=== PATIENT | female | born 1980 | race Caucasian/White ===

== ENCOUNTER 2017-07-07 15:46 | Emergency (ER) | payer OTHER ==
[2017-07-07 16:02] VITALS: BP 139/82; PULSE 90; TEMP 98.3; BMI 34.4
--- NOTE | 2017-07-07 16:04 | PDOC ---
Rapid Medical Evaluation Time Seen by Provider: 07/07/17 15:56 Medical Evaluation: Allergies Allergy/AdvReac Type Severity Reaction Status Date / Time No Known Allergies Allergy Verified 10/29/15 03:05 07/07/17 15:57 The patient presents with a chief complaint of: [Having heart palpitation, dizziness and tingling in the hands, started 1 hour ago. No history of anxiety ] I have performed a brief in-person evaluation of this patient. Pertinent physical exam findings: vss, [No tachycardia, RRR, Lungs clear on assessment. abdomen is soft, nontender, non distended] I have ordered the following: [EKG] The patient will proceed to the ED for further evaluation. Discharge Disposition - Diagnosis Heart palpitations - Referrals - Patient Instructions - Post Discharge Activity
[2017-07-07 17:33] LABS: BASO % 0.7 % (0-2.0); EOS % 0.3 % (0-4.5); HEMATOCRIT 42.7 % (32.4-45.2); HEMOGLOBIN 14.2 GM/dL (10.7-15.3); LYMPH % 14.7 % (8-40); MCH 27.8 pg (25.7-33.7); MCHC 33.4 g/dl (32.0-36.0); MEAN CELL VOLUME 83.2 fl (80-96); MEAN PLT VOLUME 8.5 fl (7.5-11.1); MONO % 5.9 % (3.8-10.2); NEUT % 78.4 % (42.8-82.8); PLATELET COUNT 289 K/MM3 (134-434); RBC 5.13 M/mm3 (3.60-5.2); RDW 13.6 % (11.6-15.6); WHITE BLOOD COUNT 8.1 K/mm3 (4.0-10.0)
--- NOTE | 2017-07-07 17:41 | PDOC ---
History of Present Illness - General History Source: Patient Exam Limitations: No Limitations - History of Present Illness Initial Comments: 07/07/17 17:42 The patient is a 36 year old female, with a significant past medical history of GERD, who presents to the emergency department with, palpitations, dizziness, and cold hands shaking beginning approx. 2 hours ago. The patient reports the palpitations lasted for approx. 5 minutes before resolving on their own. The patient reports she did not eat for a few hours before the palpitations. The patient also reports associated symptoms of headache. She denies chest pain, shortness of breath or loss of consciousness. She denies recent surgery or recent travel. She denies recent fevers, chills, or dizziness. She denies recent nausea, vomit, diarrhea or constipation. She denies recent dysuria, frequency, urgency or hematuria. Allergies: NKA Past surgical history: None reported. Social history: Nonsmoker. Denies EtOH use and recreational drug use. Primary Care Physician: Dr. Shira Lepe <Delbert Yoo - Last Filed: 07/07/17 17:42> <Yumiko Wright - Last Filed: 07/09/17 09:56> - General Chief Complaint: Palpitations Stated Complaint: PALPITATIONS, SOB Time Seen by Provider: 07/07/17 15:56 Past History <Delbert Yoo - Last Filed: 07/07/17 17:42> - Past Medical History Asthma: No Cancer: No Cardiac Disorders: No COPD: No Diabetes: No HTN: No Seizures: No Thyroid Disease: No - Suicide/Smoking/Psychosocial Hx Smoking Status: No Smoking History: Never smoked Number of Cigarettes Smoked Daily: 0 Information on smoking cessation initiated: No Hx Alcohol Use: No Drug/Substance Use Hx: No Substance Use Type: None Hx Substance Use Treatment: No <Yumiko Wright - Last Filed: 07/09/17 09:56> - Past Medical History Allergies/Adverse Reactions: Allergies Allergy/AdvReac Type Severity Reaction Status Date / Time No Known Allergies Allergy Verified 07/07/17 15:58 Home Medications: Ambulatory Orders Omeprazole 20 mg PO DAILY 07/07/17 Review of Systems - Review of Systems Comments:: 07/07/17 17:43 GENERAL/CONSTITUTIONAL: No fever or chills. No weakness. HEAD, EYES, EARS, NOSE AND THROAT: No change in vision. No ear pain or discharge. No sore throat. CARDIOVASCULAR: +Palpitations. No chest pain or shortness of breath. RESPIRATORY: No cough, wheezing, or hemoptysis. GASTROINTESTINAL: No nausea, vomiting, diarrhea or constipation. GENITOURINARY: No dysuria, frequency, or change in urination. MUSCULOSKELETAL: No joint or muscle swelling or pain. No neck or back pain. SKIN: No rash NEUROLOGIC: +Headache. +Dizziness. No loss of consciousness, or change in strength/sensation. ENDOCRINE: No increased thirst. No abnormal weight change. HEMATOLOGIC/LYMPHATIC: No anemia, easy bleeding, or history of blood clots. ALLERGIC/IMMUNOLOGIC: No hives or skin allergy. <Delbert Yoo - Last Filed: 07/07/17 17:42> *Physical Exam - Vital Signs Last Vital Signs Temp Pulse Resp BP Pulse Ox 98.3 F 90 18 139/82 100 07/07/17 15:59 07/07/17 15:59 07/07/17 15:59 07/07/17 15:59 07/07/17 15:59 - Physical Exam Comments: 07/07/17 17:43 GENERAL: Awake, alert, and fully oriented, in no acute distress HEAD: No signs of trauma EYES: PERRLA, EOMI, sclera anicteric, conjunctiva clear ENT: Auricles normal inspection, hearing grossly normal, nares patent, oropharynx clear without exudates. Moist mucosa NECK: Normal ROM, supple, no lymphadenopathy, JVD, or masses LUNGS: Breath sounds equal, clear to auscultation bilaterally. No wheezes, and no crackles HEART: Regular rate and rhythm, normal S1 and S2, no murmurs, rubs or gallops ABDOMEN: Soft, nontender, normoactive bowel sounds. No guarding, no rebound. No masses EXTREMITIES: Normal range of motion, no edema. No clubbing or cyanosis. No cords, erythema, or tenderness NEUROLOGICAL: Cranial nerves II through XII grossly intact. Normal speech, normal gait SKIN: Warm, Dry, normal turgor, no rashes or lesions noted. <Delbert Yoo - Last Filed: 07/07/17 17:42> - Vital Signs Last Vital Signs Temp Pulse Resp BP Pulse Ox 98.3 F 90 18 139/82 100 07/07/17 15:59 07/07/17 15:59 07/07/17 15:59 07/07/17 15:59 07/07/17 15:59 <Yumiko Wright - Last Filed: 07/09/17 09:56> Heart Score/ECG Review - History History: Slightly suspicious - Electrocardiogram EKG: Normal - Age Age: </= 45 - Risk Factors Risk Factors Heart Score: No Hx Hypercholesterolemia, No Hx Hypertension, No Hx Diabetes, No Smoking History, No Hx Obesity Based on the list above the patient has:: No risk factors known - Troponin Troponin: </= normal limit - Score Heart Score - Total: 0 - ECG Intrepretation Rhythm: Regular Rhythm - [place]: Normal <Yumiko Wright - Last Filed: 07/09/17 09:56> ED Treatment Course - LABORATORY CBC & Chemistry Diagram: 07/07/17 17:16 07/07/17 17:16 - ADDITIONAL ORDERS Additional order review: Laboratory Results 07/07/17 Unknown Urine HCG, Qual Negative 07/07/17 17:16 RBC 5.13 MCV 83.2 MCHC 33.4 RDW 13.6 MPV 8.5 Neutrophils % 78.4 D Lymphocytes % 14.7 D Monocytes % 5.9 Eosinophils % 0.3 D Basophils % 0.7 <Delbert Yoo - Last Filed: 07/07/17 17:42> - LABORATORY CBC & Chemistry Diagram: 07/07/17 17:16 07/07/17 17:16 - ADDITIONAL ORDERS Additional order review: Laboratory Results 07/07/17 Unknown Urine HCG, Qual Negative 07/07/17 17:16 RBC 5.13 MCV 83.2 MCHC 33.4 RDW 13.6 MPV 8.5 Neutrophils % 78.4 D Lymphocytes % 14.7 D Monocytes % 5.9 Eosinophils % 0.3 D Basophils % 0.7 <Yumiko Wright - Last Filed: 07/09/17 09:56> Medical Decision Making - Medical Decision Making EKG wnl, labs wnl. Low risk for ACS, PE. Stable for DC home. <Yumiko Wright - Last Filed: 07/09/17 09:56> *DC/Admit/Observation/Transfer - Attestations Scribe Attestion: 07/07/17 17:43 Documentation prepared by Delbert Yoo, acting as medical secretary for Yumiko Wright MD. <Delbert Yoo - Last Filed: 07/07/17 17:42> - Discharge Dispostion Admit: No <Yumiko Wright - Last Filed: 07/09/17 09:56> Diagnosis at time of Disposition: Palpitations - Discharge Dispostion Disposition: HOME Condition at time of disposition: Stable - Referrals Referrals: Shira Lepe [Primary Care Provider] - - Patient Instructions Printed Discharge Instructions: DI for Palpitations - Post Discharge Activity
[2017-07-07 18:21] LABS: ALBUMIN 3.9 g/dl (3.4-5.0); ANION GAP 7 (8-16); BILIRUBIN,TOTAL 0.3 mg/dL (0.2-1.0); BLOOD UREA NITROGEN 11 mg/dL (7-18); CALCIUM 8.6 mg/dL (8.5-10.1); CHLORIDE 105 mmol/L (98-107); CO2 28 mmol/L (21-32); CREATININE 0.6 mg/dL (0.55-1.02); GLUCOSE,RANDOM 100 mg/dL (74-106); POTASSIUM 3.7 mmol/L (3.5-5.1); SGOT/AST 18 U/L (15-37); SGPT/ALT 42 U/L (12-78); SODIUM 140 mmol/L (136-145); TOT PROT 7.7 g/dl (6.4-8.2)
[2017-07-07 18:29] LABS: ALK PHOS 95 U/L (45-117)
--- NOTE | 2017-07-08 14:02 | EKG ---
Test Reason : Blood Pressure : / mmHG Vent. Rate : 083 BPM Atrial Rate : 083 BPM P-R Int : 154 ms QRS Dur : 108 ms QT Int : 384 ms P-R-T Axes : 031 -36 006 degrees QTc Int : 451 ms NORMAL SINUS RHYTHM LEFT AXIS DEVIATION ABNORMAL ECG WHEN COMPARED WITH ECG OF 07-JUL-2017 15:58, INCOMPLETE RIGHT BUNDLE BRANCH BLOCK IS NO LONGER PRESENT Confirmed by MD SAL, SIMIN ([id number]) on 07/08/2017 2:01:54 PM Referred By: Confirmed By:SIMIN HUANG MD
--- NOTE | 2017-07-10 11:02 | EKG ---
Test Reason : Blood Pressure : / mmHG Vent. Rate : 087 BPM Atrial Rate : 087 BPM P-R Int : 160 ms QRS Dur : 102 ms QT Int : 370 ms P-R-T Axes : 039 -48 021 degrees QTc Int : 445 ms NORMAL SINUS RHYTHM INCOMPLETE RIGHT BUNDLE BRANCH BLOCK LEFT ANTERIOR FASCICULAR BLOCK ABNORMAL ECG NO PREVIOUS ECGS AVAILABLE Confirmed by SRAVAN SHARPE MD ([id number]) on 07/10/2017 11:02:11 AM Referred By: Confirmed By:SRAVAN SHARPE MD
== END 2017-07-07 18:41 | disposition home or self-care (01) ==
LOC: JER 15:46
DX: R00.2 Palpitations (principal)
CPT/HCPCS: 36415; 80053; 84443; 84703; 85025; 93005; 93010; 99284-25

== ENCOUNTER 2023-03-31 21:23 | Emergency (ER) | payer OTHER ==
[2023-03-31 21:33] VITALS: BP 136/77; PULSE 92; RESP 16; TEMP 98.3; BMI 36.0
[2023-03-31 22:42] LABS: EPI CELLS >36 /uL (0-25.1); HYALINE CASTS 3 /uL (0-3.1); URINE APPEARANCE CLOUDY; URINE BACTERIA 1529 /uL (0-1359); URINE BILIRUBIN NEGATIVE (NEGATIVE); URINE COLOR YELLOW; URINE GLUCOSE (UA) NEGATIVE (NEGATIVE); URINE KETONE TRACE (NEGATIVE); URINE LEUK ESTERASE 1+ (NEGATIVE); URINE NITRITE NEGATIVE (NEGATIVE); URINE PROTEIN TRACE (NEGATIVE); URINE WBC 140 /uL (0-25.8)
[2023-03-31 23:59] LABS: URINE RBC 17.5 /uL (0-23.9)
[2023-04-01 00:23] LABS: BASO % 0.6 % (0-2.0); EOS % 1.8 % (0-4.5); HEMATOCRIT 40.5 % (32.4-45.2); HEMOGLOBIN 13.5 GM/dL (10.7-15.3); LYMPH % 27.5 % (8-40); MCHC 33.3 g/dl (32.0-36.0); MEAN CELL VOLUME 78.1 fl (80-96); MEAN PLT VOLUME 7.9 fl (7.5-11.1); MONO % 7.5 % (3.8-10.2); NEUT % 62.6 % (42.8-82.8); PLATELET COUNT 316 10^3/uL (134-434); RBC 5.18 M/mm3 (3.60-5.2); RDW 15.3 % (11.6-15.6); WHITE BLOOD COUNT 7.6 K/mm3 (4.0-10.0)
[2023-04-01 00:36] LABS: INR 1.02 (0.83-1.09); PROTHROMBIN TIME (PATIENT) 11.8 SEC (9.7-13.0)
[2023-04-01 00:39] LABS: ACTIVATED PTT 30.3 SECONDS (25.2-36.5)
[2023-04-01 00:42] LABS: POTASSIUM 3.5 mmol/L (3.5-5.1)
[2023-04-01 00:44] LABS: CALCIUM 9.4 mg/dL (8.5-10.1)
[2023-04-01 00:45] LABS: ALBUMIN 3.6 g/dl (3.4-5.0); BLOOD UREA NITROGEN 10.3 mg/dL (7-18)
[2023-04-01 00:48] LABS: CREATININE 0.5 mg/dL (0.55-1.3)
[2023-04-01 00:49] LABS: BILIRUBIN,TOTAL 0.4 mg/dL (0.2-1); TOT PROT 7.6 g/dl (6.4-8.2)
[2023-04-01] MEDS ORDERED: SULFAMETHOXAZOLE/TRIMETHOPRIM 800MG/160MG D.S. TABLET PO ONE (02:02)
[2023-04-01] MEDS ORDERED: SULFAMETHOXAZOLE/TRIMETHOPRIM 800MG/160MG D.S. TABLET ONE (02:25)
== END 2023-04-01 02:31 | disposition home or self-care (01) ==
LOC: JER 21:23
DX: R42 Dizziness and giddiness (principal); R68.83 Chills (without fever); H53.10 Unspecified subjective visual disturbances; H49.9 Unspecified paralytic strabismus; N39.0 Urinary tract infection, site not specified; Z20.822 Contact with and (suspected) exposure to COVID-19
CPT/HCPCS: 0241U-QW; 36415; 71046-TC-FY; 80053; 81003; 84484; 85025; 85610; 85730; 87070; 87086; 93005; 93010; 99285-25

== ENCOUNTER 2025-01-11 19:15 | Emergency (ER) | payer OTHER ==
[2025-01-11 19:31] VITALS: TEMP 98.5; BMI 38.7
[2025-01-11] MEDS ORDERED: ACETAMINOPHEN 325 MG TABLET (FP) ONE (20:20)
[2025-01-11] MEDS ORDERED: DIPHTH,PERTUSS(ACELL),TET 0.5 ML DISP.SYRIN IM ONE (20:22)
[2025-01-11] MEDS: ACETAMINOPHEN 325 MG TABLET (FP) PO ONE (20:24)
[2025-01-11] MEDS: DIPHTH,PERTUSS(ACELL),TET 0.5 ML DISP.SYRIN IM ONE (20:25)
[2025-01-11 22:10] VITALS: BP 122/63; PULSE 83; RESP 14
== END 2025-01-11 22:10 | disposition home or self-care (01) ==
LOC: JER 19:15
PROC: 0HQNXZZ Repair Left Foot Skin, External Approach (ICD-10-PCS; principal; 2025-01-11)
PROC: 3E0234Z Introduction of Serum, Toxoid and Vaccine into Muscle, Percutaneous Approach (ICD-10-PCS; 2025-01-11)
DX: S91.312A Laceration without foreign body, left foot, initial encounter (principal); Z23 Encounter for immunization; W26.0XXA Contact with knife, initial encounter; Y92.009 Unspecified place in unspecified non-institutional (private) residence as the place of occurrence of the external cause
CPT/HCPCS: 12001-25; 73630-TC-LT; 90471; 90715; 99284-25